=== PATIENT | male | born 1980 | race American Indian/Alaskan Native ===

== ENCOUNTER 2018-05-04 06:10 | Emergency (ER) | payer SELFPAY ==
[2018-05-04 06:43] LABS: Bilirubin,Urine NEG (Negative); Blood,Urine NEG (Negative); Color,Urine Yellow (Yellow); Mucus,Urine FEW /HPF; Protein,Urine <15 mg/dL mg/dL (Negative); RBC,Urine < 1.0 /HPF (0.0-6.0); Urobilinogen,Urine < 2.0 mg/dL (<2.0)
--- NOTE | 2018-05-04 07:20 | Emergency Department Report ---
ED Male HPI - General Chief complaint: Urogenital-Male Stated complaint: BURNING WHEN URINATING Time Seen by Provider: 05/04/18 06:58 Source: patient Mode of arrival: Ambulatory Limitations: No Limitations - History of Present Illness Initial comments: This is a 38-year-old -[place] male presents with dysuria for 1 day. States he recently started a new person and they had intercourse a few weeks ago and the condom broke and this morning he started feeling burning with urination. Patient has no past medical history. He denies frequent C, urgency , testicular swelling or pain, penile discharge, pelvic pain and low back pain. MD Complaint: dysuria Onset/Timin -: days(s) Location: penis Radiation: none Severity: mild Severity scale (0 -10): 2 Quality: burning Consistency: intermittent Improves with: none Worsens with: urination new sexual partner denies other symptoms - Related Data Sexually active: Yes Allergies Allergy/AdvReac Type Severity Reaction Status Date / Time No Known Allergies Allergy Unverified 05/04/18 06:22 ED Review of Systems ROS: Stated complaint: BURNING WHEN URINATING Other details as noted in HPI Constitutional: denies: chills, fever Respiratory: denies: cough, shortness of breath, wheezing Cardiovascular: denies: chest pain, palpitations Gastrointestinal: denies: abdominal pain, nausea, vomiting, diarrhea Genitourinary: dysuria. denies: urgency, frequency, hematuria, discharge, testicular pain, testicular mass Musculoskeletal: denies: back pain, joint swelling, arthralgia Skin: denies: rash, lesions Neurological: denies: headache, weakness, paresthesias Psychiatric: denies: anxiety, depression ED Past Medical Hx - Past Medical History Previous Medical History?: No Additional medical history: Obesity - Surgical History Past Surgical History?: Yes Hx Appendectomy: Yes - Social History Smoking Status: Never Smoker Substance Use Type: None ED Physical Exam - General Limitations: No Limitations General appearance: alert, in no apparent distress, obese - Respiratory Respiratory exam: Present: normal lung sounds bilaterally. Absent: respiratory distress - Cardiovascular Cardiovascular Exam: Present: regular rate, normal rhythm. Absent: systolic murmur, diastolic murmur, rubs, gallop - GI/Abdominal GI/Abdominal exam: Present: soft, normal bowel sounds. Absent: organomegaly, mass - Neurological Exam Neurological exam: Present: alert, oriented X3 - Psychiatric Psychiatric exam: Present: normal affect, normal mood - Skin Skin exam: Present: warm, dry, intact, normal color. Absent: rash ED Course Vital Signs 05/04/18 06:18 Temperature 98 F Pulse Rate 67 Respiratory 16 Rate Blood Pressure 141/94 O2 Sat by Pulse 97 Oximetry ED Medical Decision Making - Medical Decision Making This is a 38-year-old male who presents with dysuria for 1 day. Patient is also asking to be treated for STD exposure. Patient was examined by me. Vitals are stable and in no acute distress. I obtained urinalysis which is unremarkable. Empirically treated with Rocephin 250 mg IM and azithromycin 1 g by mouth. Discharged home in stable condition. Discussed prevention options. F /U with PCP or Health Department for a complete STD screening. Critical care attestation.: If time is entered above; I have spent that time in minutes in the direct care of this critically ill patient, excluding procedure time. ED Disposition Clinical Impression: Exposure to STD Disposition: DC-01 TO HOME OR SELFCARE Is pt being admited?: No Does the pt Need Aspirin: No Condition: Stable Instructions: Sexually Transmitted Diseases (ED), Safe Sex (ED) Additional Instructions: Avoid drinking alcohol while taking antibiotics and for 24 hours after completion. Continue safe sexual intercourse. Follow up with Primary Care Provider or health department. Referrals: [facility] [Outside] - 3-[address] [facility] [Outside] - 3-5 Days [facility] [Outside] - 3-5 Days Forms: Work/School Release Form(ED) Time of Disposition: 07:21 Print Language: GREENLANDIC
[2018-05-04] MEDS ORDERED: ZITHROMAX PO ONE (07:22)
[2018-05-04] MEDS ORDERED: ROCEPHIN IM ONE (07:22)
[2018-05-04] MEDS ORDERED: XYLOCAINE 1% MPF 5 mL INFILTRATI ONE (07:22)
[2018-05-04 07:55] VITALS: BP 136/90
== END 2018-05-04 07:53 | disposition home or self-care (01) ==
LOC: ED 06:10
DX: Z20.2 Contact with and (suspected) exposure to infections with a predominantly sexual mode of transmission (principal); Z90.49 Acquired absence of other specified parts of digestive tract
CPT/HCPCS: 81001; 96372; 99283; J0696

== ENCOUNTER 2018-05-10 09:10 | Emergency (ER) | payer BC, OTHER ==
[2018-05-10 09:19] VITALS: BP 143/93
--- NOTE | 2018-05-10 09:32 | Emergency Department Report ---
ED Male HPI - General Chief complaint: Urogenital-Male Stated complaint: URINATION FREQUENT/BURNING Time Seen by Provider: 05/10/18 09:24 Source: patient Mode of arrival: Ambulatory Limitations: No Limitations - History of Present Illness Initial comments: This is 38-year-old male here reports that he is having burning with urination and itching. He said last girl that he was with told him to get tested. Patient has requested STD tests and for his urine to be checked. Denies any abdominal or back pain. Denies any nausea or vomiting. Denies any fever or chills. Denies any blood in his urine. MD Complaint: penile discharge, dysuria Onset/Timin -: days(s) Radiation: none Severity scale (0 -10): 0 Improves with: none Worsens with: none new sexual partner discharge, dysuria. denies: swelling, mass, rash, urinary retention, blood in urine, fever, nausea/vomiting, incontinence - Related Data Sexually active: Yes (unsafe sex) Home Medications Medication Instructions Recorded Confirmed Last Taken No Known Home Medications [No 05/10/18 05/10/18 Unknown Reported Home Medications] Allergies Allergy/AdvReac Type Severity Reaction Status Date / Time No Known Allergies Allergy Unverified 05/04/18 06:22 ED Review of Systems ROS: Stated complaint: URINATION FREQUENT/BURNING Other details as noted in HPI Constitutional: denies: chills, fever Eyes: denies: eye pain, eye discharge ENT: denies: throat pain Respiratory: denies: cough, shortness of breath, SOB with exertion, SOB at rest , stridor, wheezing Cardiovascular: denies: chest pain, palpitations, dyspnea on exertion, edema, syncope Gastrointestinal: denies: abdominal pain, nausea, vomiting, diarrhea, constipation, hematemesis, melena, hematochezia Genitourinary: dysuria, discharge. denies: urgency, frequency, hematuria, testicular pain, testicular mass Musculoskeletal: denies: back pain, joint swelling, arthralgia, myalgia Skin: denies: rash, lesions Neurological: denies: headache, weakness, numbness, paresthesias, confusion, abnormal gait, vertigo ED Past Medical Hx - Past Medical History Previous Medical History?: Yes Additional medical history: Obesity - Surgical History Past Surgical History?: Yes Hx Appendectomy: Yes - Family History Family history: hypertension - Social History Smoking Status: Never Smoker Substance Use Type: None - Medications Home Medications: Home Medications Medication Instructions Recorded Confirmed Last Taken Type No Known Home Medications [No 05/10/18 05/10/18 Unknown History Reported Home Medications] ED Physical Exam - General Limitations: No Limitations General appearance: alert, in no apparent distress - Head Head exam: Present: atraumatic, normocephalic, normal inspection - Eye Eye exam: Present: normal appearance, PERRL, EOMI. Absent: conjunctival injection, nystagmus, periorbital swelling, periorbital tenderness Pupils: Present: normal accommodation - ENT ENT exam: Present: normal exam, normal orophraynx, mucous membranes moist, TM's normal bilaterally, normal external ear exam - Neck Neck exam: Present: normal inspection, full ROM. Absent: tenderness, lymphadenopathy - Respiratory Respiratory exam: Present: normal lung sounds bilaterally. Absent: chest wall tenderness - Cardiovascular Cardiovascular Exam: Present: normal rhythm, bradycardia, normal heart sounds. Absent: systolic murmur, diastolic murmur - GI/Abdominal GI/Abdominal exam: Present: soft, normal bowel sounds. Absent: distended, tenderness, guarding, rebound, rigid, organomegaly, mass, bruit, pulsatile mass , hernia - Extremities Exam Extremities exam: Present: normal inspection, full ROM, normal capillary refill. Absent: tenderness, pedal edema, joint swelling, calf tenderness - Back Exam Back exam: Present: normal inspection, full ROM, other (ambulates without any difficulties). Absent: tenderness, CVA tenderness (R), CVA tenderness (L), muscle spasm, paraspinal tenderness, vertebral tenderness, rash noted - Neurological Exam Neurological exam: Present: alert, oriented X3, normal gait - Psychiatric Psychiatric exam: Present: normal affect, normal mood - Skin Skin exam: Present: warm, dry, intact, normal color. Absent: rash ED Course Vital Signs 05/10/18 09:17 Temperature 98.3 F Pulse Rate 56 L Respiratory 16 Rate Blood Pressure 143/93 O2 Sat by Pulse 96 Oximetry - Reevaluation(s) Reevaluation #1: 05/10/18 11:40 Patient received Rocephin 250 mg IM and azithromycin to just 50 mg IM in emergency room with no adverse reaction. ED Medical Decision Making - Lab Data Lab Results 05/10/18 Range/Units Unknown Urine Color Yellow (Yellow) Urine Turbidity Clear (Clear) Urine pH 5.0 (5.0-7.0) Ur Specific [place] 1.020 (1.003-1.030) Urine Protein <15 mg/dl (Negative) mg/dL Urine Glucose (UA) Neg (Negative) mg/dL Urine Ketones Neg (Negative) mg/dL Urine Blood Neg (Negative) Urine Nitrite Neg (Negative) Urine Bilirubin Neg (Negative) Urine Urobilinogen 2.0 (<2.0) mg/dL Ur Leukocyte Esterase Neg (Negative) Urine WBC (Auto) < 1.0 (0.0-6.0) /HPF Urine RBC (Auto) 1.0 (0.0-6.0) /HPF Urine Mucus Few /HPF Gonorrhea and chlamydia pending - Medical Decision Making This is a 38-year-old male here to be checked for STD because he thinks he has been in contact with somebody that had STD and wants to be tested and also once his urine to be checked to see if he has a bladder infection. She was seen and examined by myself. Physical exam is normal. Patient wants to be treated empirically for gonorrhea and chlamydia because he said he was in contact with somebody who asked them to get tested for these. Patient was treated with azithromycin 1 g by mouth and Rocephin 250 mg IM in emergency room. Patient tolerated well. Urinalysis is negative for infection. Urine culture sent a urine for gonorrhea and Chlamydia sent. I discussed urinalysis results and treatment plans a patient and he voiced understanding. Penile discharge-UA negative. Gonorrhea and chlamydia pending Male concern for STD without diagnosis Dysuria-pyridium She given Rocephin 250 mg Im and azithromycin 1 g by mouth . I discussed the patient and he needs to be rechecked in 7-10 days for STD and he needs to do this at the health department or at some outside Medical Center and he voiced understanding. I also discussed with him that he needs to practice safe sex and to retain from having sexual activity until he knows what is gonorrhea and chlamydia results are. He voiced understanding Patient discharged home in stable condition to follow up at health department or some [facility] in 7-10 days. Vital signs are stable and he is afebrile. He is requesting medication for burning. Critical care attestation.: If time is entered above; I have spent that time in minutes in the direct care of this critically ill patient, excluding procedure time. ED Disposition Clinical Impression: Concern about STD in male without diagnosis, Abnormal penile discharge, Dysuria Disposition: TO HOME OR SELFCARE Is pt being admited?: No Does the pt Need Aspirin: No Condition: Stable Instructions: Dysuria (ED), Safe Sex (ED), Sexually Transmitted Diseases (ED) Additional Instructions: Treated for gonorrhea and chlamydia today. Please practice safe sex. Please go to the health department or sats at [facility] in 7 today's 10 days to have repeat testing He is let you partner know that she/he will need to go test get tested for STD Referrals: [facility] [Outside] - 7-10 days [facility] [Outside] - 7-10 days Forms: Work/School Release Form(ED)
[2018-05-10 10:24] LABS: Bilirubin,Urine NEG (Negative); Blood,Urine NEG (Negative); Color,Urine Yellow (Yellow); Mucus,Urine FEW /HPF; Protein,Urine <15 mg/dL mg/dL (Negative); WBC,Urine < 1.0 /HPF (0.0-6.0)
[2018-05-10] MEDS ORDERED: ROCEPHIN IM ONE (10:34)
[2018-05-10] MEDS ORDERED: XYLOCAINE 1% MPF 5 mL INFILTRATI ONE (10:34)
[2018-05-10] MEDS ORDERED: ZITHROMAX PO ONE (10:34)
== END 2018-05-10 12:00 | disposition home or self-care (01) ==
LOC: ED 09:10
DX: R30.0 Dysuria (principal); R36.9 Urethral discharge, unspecified; Z20.2 Contact with and (suspected) exposure to infections with a predominantly sexual mode of transmission; Z90.49 Acquired absence of other specified parts of digestive tract
CPT/HCPCS: 81001; 87086; 87591; 96372; 99283; J0696

== ENCOUNTER 2021-07-27 10:34 | Emergency (ER) | payer SELFPAY ==
--- NOTE | 2021-07-27 13:08 | Emergency Department Report ---
ED General Adult HPI - General Chief complaint: Extremity Injury, Upper Stated complaint: I think I have left thumb trigger finger PUI?: No Time Seen by Provider: 07/27/21 13:06 Source: patient, RN notes reviewed Mode of arrival: Stretcher Limitations: No Limitations - History of Present Illness Initial comments: The patient is a 41-year-old gentleman. He is not known to myself previously. He does not have a primary care doctor. He does not know about past medical history. He is [id number]. He does not do heavy lifting for work. He presents to the ER today with a complaint of nontraumatic left thumb clicking. It is intermittently painful. It is at the IP joint. It is now resolved. The patient currently denies headache, neck pain, chest pain, abdominal pain, shortness of breath, extremity weakness and numbness. He declines pain medication. He states that he is at his baseline. 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 He is interested in getting private health insurance -: Gradual, days(s) Location: left (Left thumb) Radiation: non-radiation Consistency: intermittent Improves with: none Worsens with: none Associated Symptoms: denies other symptoms - Related Data Home Medications Medication Instructions Recorded Confirmed Last Taken No Known Home Medications [No 05/10/18 05/10/18 Unknown Reported Home Medications] Allergies Allergy/AdvReac Type Severity Reaction Status Date / Time No Known Allergies Allergy Unverified 05/04/18 06:22 ED Review of Systems ROS: Stated complaint: LFT THUMB ON LFT HAND PAIN Other details as noted in HPI Comment: All other systems reviewed and negative Musculoskeletal: other (Intermittent left thumb clicking. Painless at this time) ED Past Medical Hx - Past Medical History Additional medical history: Obesity - Surgical History Hx Appendectomy: Yes - Social History Smoking Status: Never Smoker Substance Use Type: None - Medications Home Medications: Home Medications Medication Instructions Recorded Confirmed Last Taken Type No Known Home Medications [No 05/10/18 05/10/18 Unknown History Reported Home Medications] ED Physical Exam - General General appearance: alert, in no apparent distress, obese - Head Head exam: Present: atraumatic, normocephalic - Eye Eye exam: Present: normal appearance, EOMI. Absent: nystagmus - ENT ENT exam: Present: normal exam, normal orophraynx, mucous membranes moist, normal external ear exam - Neck Neck exam: Present: normal inspection, full ROM. Absent: tenderness, meningismus - Respiratory Respiratory exam: Present: normal lung sounds bilaterally. Absent: respiratory distress, wheezes, rales, rhonchi, stridor, decreased breath sounds - Cardiovascular Cardiovascular Exam: Present: regular rate, normal rhythm, normal heart sounds. Absent: bradycardia, tachycardia, irregular rhythm, systolic murmur, diastolic murmur, rubs, gallop - GI/Abdominal GI/Abdominal exam: Present: soft. Absent: distended, tenderness, guarding, rebound, rigid, pulsatile mass - Rectal Rectal exam: Present: deferred - Extremities Exam Extremities exam: Present: normal inspection, full ROM (Full range of motion to the left thumb. There is no left thumb tenderness. There is no redness, pus or streaking.), normal capillary refill, other (2+ pulses noted in the bilateral upper and lower extremities. There is no palpable cord. negative Homans sign. Muscular compartments are soft. The pelvis is stable.). Absent: tenderness, calf tenderness - Back Exam Back exam: Present: normal inspection, full ROM. Absent: tenderness, CVA tenderness (R), CVA tenderness (L), paraspinal tenderness, vertebral tenderness - Neurological Exam Neurological exam: Present: alert, oriented X3, normal gait, other (No facial droop. Tongue midline. Extraocular movements intact bilaterally. Facial sensation intact to light touch in V1, V2, V3 distribution bilaterally. 5 and a 5 strength in 4 extremities. Sensation intact to light touch in 4 extremities.). Absent: motor sensory deficit - Psychiatric Psychiatric exam: Present: normal affect, normal mood - Skin Skin exam: Present: warm, dry, intact, normal color. Absent: rash ED Course Vital Signs 07/27/21 07/27/21 07/27/21 13:00 13:16 13:30 Temperature 97.9 F Pulse Rate 69 Respiratory 16 Rate Blood Pressure 159/87 159/87 159/87 Blood Pressure [Right] O2 Sat by Pulse 99 96 96 Oximetry 07/27/21 07/27/21 13:44 13:45 Temperature Pulse Rate 65 Respiratory 14 16 Rate Blood Pressure Blood Pressure 173/93 [Right] O2 Sat by Pulse 97 97 Oximetry ED Medical Decision Making - Lab Data Vital Signs 10/07/27/21 07/27/21 13:00 13:16 13:30 Temperature 97.9 F Pulse Rate 69 Respiratory 16 Rate Blood Pressure 159/87 159/87 159/87 Blood Pressure [Right] O2 Sat by Pulse 99 96 96 Oximetry 07/27/21 07/27/21 13:44 13:45 Temperature Pulse Rate 65 Respiratory 14 16 Rate Blood Pressure Blood Pressure 173/93 [Right] O2 Sat by Pulse 97 97 Oximetry - Medical Decision Making Differential diagnosis, including but not limited to Left thumb pain, strain, ligamentous injury, incidental obesity, incidental elevated blood pressure Assessment and plan: 41-year-old gentleman, who was afebrile with reassuring vital signs with exception of elevated blood pressure (please reference the [employer] clinical policy on asymptomatic elevated blood pressure) presenting with painful sensation of left thumb clicking, now resolved. Full range of motion to the left thumb. Left thumb flexion, extension, abduction, adduction, circumduction and opposition intact. He has good capillary refill and appropriate pulses. He is neurovascularly intact. He has no other injuries or complaints at this time. Counseled patient that he may pursue private [email or web address] website. Elevated blood pressure incidentally reviewed and appreciated, does not represent an emergent medical condition at this time, as he does not endorse any symptoms that would represent any acute decompensation. Diet and lifestyle modifications. Patient discharge during [facility] downtime, stated he would call for his discharge paperwork return precautions are reviewed Critical care attestation.: If time is entered above; I have spent that time in minutes in the direct care of this critically ill patient, excluding procedure time. ED Disposition Clinical Impression: Trigger thumb, left thumb, Adult BMI 50.0-59.9 kg/sq m, Elevated blood pressure reading Disposition: HOME / SELF CARE / HOMELESS Is pt being admited?: No Does the pt Need Aspirin: No Condition: Good Instructions: Trigger Finger, Preventing Hypertension, BMI for Adults Additional Instructions: Recommend that patient follow-up with a primary care doctor within the next month. Recommend that patient lose weight, and aggressively exercise as tolerated. Patient may take [id number] ibuprofen and acetaminophen as needed for physical pain. Patient may alternate ice packs and heat packs as needed for physical pain. Patient may acquire health insurance on the [employer] website. Patient should follow-up with a primary care doctor for body mass index of 50, and elevated blood pressure which was seen today, within the next month. Please return to the emergency room right away with new pain, worsened pain, migration of pain, projectile vomiting, change in mental status, confusion, inability to tolerate liquid feeds, new, worsened or different symptoms not present on the initial emergency room evaluation. Referrals: MALDONADO LORA MD [Staff Physician] - as needed [facility] [Provider Group] - as needed
[2021-07-27 13:45] VITALS: BP 173/93
== END 2021-07-27 15:11 | disposition home or self-care (01) ==
LOC: ED 10:34
DX: M65.312 Trigger thumb, left thumb (principal); R03.0 Elevated blood-pressure reading, without diagnosis of hypertension; Z90.49 Acquired absence of other specified parts of digestive tract; E66.9 Obesity, unspecified; Z68.43 Body mass index [BMI] 50.0-59.9, adult
CPT/HCPCS: 99282